=== PATIENT | female | born 1965 | race Caucasian/White ===

== ENCOUNTER 2019-10-17 14:34 | Emergency (ER) | payer BC, OTHER ==
[~2019-10-17] VITALS: Ht 165.1 cm; Wt 73.6 kg
[2019-10-17] MEDS ORDERED: LEVO100T5 PO (14:43)
[2019-10-17] MEDS ORDERED: OMEP-218 PO (14:43)
[2019-10-17] MEDS ORDERED: NS 1,000 ML IV ONE ×3 (15:00→20:00)
[2019-10-17 15:17] LABS: VENOUS BASE EXCESS -2.5 (-2.0-2.0); VENOUS HCO3 23.5 MEQ/L (23.0-27.0); VENOUS O2 SATURATION 76.7 % (60.0-80.0); VENOUS PARTIAL PRESSURE CO2 44.8 mmHg (38.0-50.0); VENOUS PARTIAL PRESSURE O2 46.2 mmHg (30.0-50.0); VENOUS PH 7.337 UNITS (7.330-7.430); VENOUS TOTAL CO2 24.8 MEQ/L (24.0-28.0)
[2019-10-17 15:24] LABS: BASO # 0.1 10^3/uL (0.0-0.2); BASO % 1.1 % (0.0-1.0); EOS % 0.3 % (0.0-3.0); HEMATOCRIT 42.2 % (36.0-47.0); HEMOGLOBIN 13.2 g/dl (12.0-15.5); LYMPH # 1.7 10^3/uL (1.5-5.0); LYMPH % 22.8 % (24.0-44.0); MEAN CORPUSCULAR HEMOGLOBIN 25.7 pg (27.0-33.0); MEAN CORPUSCULAR HGB CONC 31.3 g/dl (32.0-36.5); MEAN CORPUSCULAR VOLUME 82.3 fl (80.0-96.0); MONO # 0.4 10^3/uL (0.0-0.8); MONO % 5.5 % (0.0-5.0); NEUTROPHILS # 5.1 10^3/uL (1.5-8.5); NEUTROPHILS % 69.9 % (36.0-66.0); PLATELET COUNT, AUTOMATED 293 10^3/uL (150-450); RED BLOOD COUNT 5.13 10^6/uL (4.00-5.40); WHITE BLOOD COUNT 7.3 10^3/uL (4.0-10.0)
[2019-10-17 15:51] LABS: OSMOLALITY SERUM 337 MOSM/KG (275-295)
[2019-10-17 15:53] LABS: ACETAMINOPHEN LEVEL < 2.0 UG/ML (10.0-30.0); ALBUMIN 3.8 GM/DL (3.2-5.2); ALT/SGPT 44 U/L (12-78); BILIRUBIN,DIRECT 0.1 MG/DL (0.0-0.2); BILIRUBIN,TOTAL 0.4 MG/DL (0.2-1.0); BLOOD UREA NITROGEN 11 MG/DL (7-18); CALCIUM LEVEL 8.8 MG/DL (8.5-10.1); CARBON DIOXIDE LEVEL 23 MEQ/L (21-32); CHLORIDE LEVEL 107 MEQ/L (98-107); CPK CREATINE PHOSPHOKINASE 80 U/L (26-192); ETHYL ALCOHOL (ETHANOL) 0.177 % (0.000-0.010); GLOMERULAR FILTRATION RATE > 60.0 (>51); GLUCOSE, FASTING 88 MG/DL (70-100); POTASSIUM SERUM 3.7 MEQ/L (3.5-5.1); SALICYLATE LEVEL < 1.7 MG/DL (5.0-30.0); SODIUM LEVEL 141 MEQ/L (136-145); TOTAL PROTEIN 7.5 GM/DL (6.4-8.2)
--- NOTE | 2019-10-17 17:02 | REP ---
CHEST, SINGLE VIEW: There is no evidence of acute infiltrate. No pleural effusion is seen. The heart is normal in size. The mediastinal silhouette is unremarkable. The visualized osseous structures are intact. IMPRESSION: No acute pulmonary disease. Electronically Signed by Catracho Paiz MD 10/18/2019 04:41 P
[2019-10-17 17:04] LABS: AMPHETAMINES LEVEL URINE NEGATIVE (NEGATIVE); BARBITURATES URINE NEGATIVE (NEGATIVE); BENZODIAZEPINES URINE NEGATIVE (NEGATIVE); CANNABINOIDS URINE NEGATIVE (NEGATIVE); COCAINE METABOLITE URINE NEGATIVE (NEGATIVE); METHADONE URINE NEGATIVE (NEGATIVE); OPIATES URINE NEGATIVE (NEGATIVE); PHENCYCLIDINE URINE NEGATIVE (NEGATIVE)
[2019-10-17 18:45] VITALS: BP 142/82
[2019-10-17 19:37] LABS: BLOOD UREA NITROGEN 10 MG/DL (7-18); CALCIUM LEVEL 8.1 MG/DL (8.5-10.1); CARBON DIOXIDE LEVEL 23 MEQ/L (21-32); CHLORIDE LEVEL 110 MEQ/L (98-107); CREATININE FOR GFR 0.67 MG/DL (0.55-1.30); GLOMERULAR FILTRATION RATE > 60.0 (>51); GLUCOSE, FASTING 142 MG/DL (70-100); POTASSIUM SERUM 3.5 MEQ/L (3.5-5.1); SODIUM LEVEL 140 MEQ/L (136-145)
--- NOTE | 2019-10-17 21:26 | HPEPDOC ---
General Date of Admission 10/17/19 Date of Service: Oct 17, 2019 Chief Complaint The patient is a 54-year-old female admitted with a reason for visit of MHE. Source: Patient Exam Limitations: No limitations Timing/Duration: Unsure, 24 hours Severity: Moderate History of Present Illness Patient is 54 years old female with past medical history of EtOH abuse, hypothyroidism presented hospital with intoxication. 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 She states that she was run out of alcohol and she decided hands slicer machine operator. She denied any suicidal ideation or suicide attempts. She stated that she have never done it before and she never will. In emergency room patient was found to have no leukocytosis, creatinine 0.67, potassium 3.5. lactic acid 3.6. Patient received IV fluid Patient denied fever, chills, nausea, vomiting, dysuria. Home Medications Scheduled Levothyroxine Sodium (Levothyroxine Sodium) 100 Mcg Tablet, 100 MCG PO DAILY, (Reported) Omeprazole (Omeprazole) 20 Mg Capsule.dr, 20 MG PO DAILY, (Reported) Allergies Coded Allergies: codeine (Verified Allergy, Unknown, 10/17/19) Past Medical History Medical History Hypothyroidism, EtOH abuse Family History Father committed suicide, mother healthy Social History * Smoker: former Smoker Alcohol: heavy Drugs: denies A-FIB/CHADSVASC A-FIB History Current/History of A-Fib/PAF?: No Current PO Anticoag Therapy: No Review of Systems Constitutional: Denies: Chills Eyes: Denies: Pain ENT: Denies: Head Aches Skin: Denies: Rash Pulmonary: Denies: Dyspnea Cardiovascular: Denies: Chest Pain Gastrointestinal: Denies: Nausea, Vomiting Genitourinary: Denies: Dysuria Hematologic: Denies: Bruising Endocrine: Denies: Polydipsia Neurological: Denies: Weakness Psych: Reports: Mood Normal, Anxiety Physical Examination General Exam: Positive: Alert, Cooperative, No Acute Distress Eye Exam: Positive: PERRLA ENT Exam: Positive: Atraumatic Neck Exam: Positive: Supple; Negative: JVD Heart Exam: Positive: Rate Normal Telemetry: Positive: No significant arrhythmia Abdomen Exam: Positive: Normal bowel sounds Extremity Exam: Negative: Clubbing, Cyanosis Skin Exam: Positive: Nl turgor and temperature Neuro Exam: Positive: Strength at 5/5 X4 ext, Cranial Nerves 3-12 NL Psych Exam: Positive: Mental status NL Vital Signs Vital Signs Date Time Temp Pulse Resp B/P (MAP) Pulse Ox O2 Delivery O2 Flow Rate FiO2 10/17/19 19:00 77 22 98 Room Air 10/17/19 18:45 142/82 (102) 10/17/19 14:50 99.5 Laboratory Data Labs 24H Laboratory Tests 2 10/17/19 14:59: Immature Granulocyte % (Auto) 0.4, Neutrophils (%) (Auto) 69.9H, Lymphocytes (%) (Auto) 22.8L, Monocytes (%) (Auto) 5.5H, Eosinophils (%) (Auto) 0.3, Basophils (%) (Auto) 1.1H, Neutrophils # (Auto) 5.1, Lymphocytes # (Auto) 1.7, Monocytes # (Auto) 0.4, Eosinophils # (Auto) 0.0, Basophils # (Auto) 0.1, Nucleated Red Blood Cells % (auto) 0.0, Blood Gas Bicarbonate Standard 22.0, Venous Blood pH 7.337, Venous Blood Partial Pressure CO2 44.8, Venous Blood Partial Pressure O2 46.2, Venous Blood Total Carbon Dioxide 24.8, Venous Blood HCO3 23.5, Venous Bl ood Oxygen Saturation 76.7, Venous Blood Base Excess -2.5L, Anion Gap 11, Glomerular Filtration Rate > 60.0, Osmolality 337H, Calcium Level 8.8, Total Bilirubin 0.4, Direct Bilirubin 0.1, Aspartate Amino Transf (AST/SGOT) 49H, Alanine Aminotransferase (ALT/SGPT) 44, Alkaline Phosphatase 82, Total Creatine Kinase 80, Total Protein 7.5, Albumin 3.8, Albumin/Globulin Ratio 1.0L, Thyroid Stimulating Hormone (TSH) 1.060, Salicylates Level < 1.7L, Acetaminophen Level < 2.0L, Ethyl Alcohol Level 0.177H 10/17/19 15:06: Lactic Acid Level 3.3*H 10/17/19 15:30: Bedside Glucose (Misc Panel) 78 10/17/19 16:29: Urine Color YELLOW, Urine Appearance HAZY, Urine pH 6.0, Urine Specific [place] 1.012, Urine Protein NEGATIVE, Urine Glucose (UA) NEGATIVE, Urine Ketones TRACEH, Urine Blood 1+H, Urine Nitrite NEGATIVE, Urine Bilirubin NEGATIVE, Urine Urobilinogen 0.2, Urine Leukocyte Esterase TRACEH, Urine WBC (Auto) 4H, Urine RBC (Auto) 2, Urine Hyaline Casts (Auto) 0, Urine Bacteria (Auto) 1+H, Urine Squamous Epithelial Cells 7, Urine Sperm (Auto) , Urine Opiates Screen NEGATIVE, Urine Methadone Screen NEGATIVE, Urine Barbiturates Screen NEGATIVE, Urine Phencyclidine Screen NEGATIVE, Urine Amphetamines Screen NEGATIVE, Urine Benzodiazepines Screen NEGATIVE, Urine Cocaine Metabolite Screen NEGATIVE, Urine Cannabinoids Screen NEGATIVE 10/17/19 19:06: Anion Gap 7L, Glomerular Filtration Rate > 60.0, Lactic Acid Level 3.6*H, Calcium Level 8.1L CBC/BMP Laboratory Tests 10/17/19 14:59 10/17/19 19:06 Microbiology Microbiology 10/17/19 Urine Culture, Received Pending Assessment/Plan Patient is 54 years old female with past medical history of EtOH abuse, hypothyroidism presented hospital with intoxication. 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 She states that she was run out of alcohol and she decided hands slicer machine operator. She denied any suicidal ideation or suicide attempts. She stated that she have never done it before and she never will. In emergency room patient was found to have no leukocytosis, creatinine 0.67, potassium 3.5. lactic acid 3.6. Patient received IV fluid Patient denied fever, chills, nausea, vomiting, dysuria. Problems (1) Lactic acidosis Status: Acute Problem Text: Secondary to isopropyl ingestion Continue IV fluid Will repeat BMP in 6 hours (2) Toxic effect of alcohol Status: Acute Problem Text: sheet metal production worker on board Poison control was contacted and recommended monitor BMP and IV infusion. Plan / VTE VTE Prophylaxis Ordered?: Yes JACOB SAMUEL DO Oct 17, 2019 21:26
[2019-10-18] MEDS ORDERED: LEVOTHYROXINE 100MCG TABLET (0.1MG) PO SCH (06:00)
[2019-10-18] MEDS ORDERED: OMEPRAZOLE 20 MG CAP PO SCH (09:00)
--- NOTE | 2019-10-18 09:39 | ECGEPIP ---
[facility] - ED Test Date: 2019-10-17 Pat Name: YURIY CASTILLO Department: Room: - Gender: Female Activities Leader: WILNER : 1965 Requested By: TRAMAINE Tom Order Number: [id number] Reading MD: Marito Bell Measurements Intervals [place] Rate: 80 P: 26 OK: 156 QRS: 40 QRSD: 86 T: 17 QT: 387 QTc: 448 Interpretive Statements SINUS RHYTHM NONSPECIFIC T-WAVE ABNORMALITY NO PRIORS FOR COMPARISON Electronically Signed on 10-18-2019 9:39:02 EDT by Marito Bell
== END 2019-10-17 21:31 | disposition left against medical advice (07) ==
LOC: M ED 14:34
DX: T51.91XA Toxic effect of unspecified alcohol, accidental (unintentional), initial encounter (principal); E87.2 Acidosis; Z53.21 Procedure and treatment not carried out due to patient leaving prior to being seen by health care provider; F41.9 Anxiety disorder, unspecified; F32.9 Major depressive disorder, single episode, unspecified; K21.9 Gastro-esophageal reflux disease without esophagitis; Z72.0 Tobacco use; F10.10 Alcohol abuse, uncomplicated; Z79.899 Other long term (current) drug therapy; Z88.5 Allergy status to narcotic agent
CPT/HCPCS: 71045; 80048; 80076; 80307; 81001; 82550; 82803; 83605; 83930; 84443; 85025; 87088; 87186; 93005; 93041; 96360; 96361; 99285; G0480

== ENCOUNTER → 2023-08-13 | Outpatient (REF) | payer OTHER ==
[~2023-08-13] MED LIST: HYDR200T46 PO; LEVO100T5 PO; LEVO88TA3 PO; NICO2GUM50 PO; OMEP-173 PO; PRED5TA PO
[2023-08-13 16:49] LABS: C REACTIVE PROTEIN QUANTITATIV < 0.40 MG/DL (<1.0)
[2023-08-13 16:51] LABS: ALKALINE PHOSPHATASE 60 U/L (46-116); ALT/SGPT 18 U/L (7.0-40); AST/SGOT 19 U/L (<34); BILIRUBIN,DIRECT 0.2 MG/DL (<0.4); BILIRUBIN,TOTAL 0.6 MG/DL (0.3-1.2); BLOOD UREA NITROGEN 8 MG/DL (9-23); CALCIUM LEVEL 9.7 MG/DL (8.5-10.1); CARBON DIOXIDE LEVEL 31 MMOL/L (20-31); CHLORIDE LEVEL 103 MMOL/L (98-107); CREATININE FOR GFR 0.68 MG/DL (0.55-1.30); GLOMERULAR FILTRATION RATE > 60.0 (>51); GLUCOSE, FASTING 84 MG/DL (60-100); POTASSIUM SERUM 4.1 MMOL/L (3.5-5.1); SODIUM LEVEL 141 MMOL/L (136-145)
[2023-08-13 17:01] LABS: BASO # 0.1 10^3/uL (0.0-0.2); BASO % 1.6 % (0.0-1.0); EOS # 0.1 10^3/uL (0.0-0.5); EOS % 1.6 % (0.0-3.0); HEMATOCRIT 41.2 % (36.0-47.0); HEMOGLOBIN 12.6 g/dl (12.0-15.5); LYMPH # 1.2 10^3/uL (1.5-5.0); LYMPH % 37.3 % (24.0-44.0); MEAN CORPUSCULAR HEMOGLOBIN 24.8 pg (27.0-33.0); MEAN CORPUSCULAR HGB CONC 30.6 g/dl (32.0-36.5); MEAN CORPUSCULAR VOLUME 81.1 fl (80.0-96.0); MONO # 0.3 10^3/uL (0.0-0.8); MONO % 9.6 % (2.0-8.0); NEUTROPHILS # 1.6 10^3/uL (1.5-8.5); NEUTROPHILS % 49.9 % (36.0-66.0); PLATELET COUNT, AUTOMATED 272 10^3/uL (150-450); RED BLOOD COUNT 5.08 10^6/uL (4.00-5.40); WHITE BLOOD COUNT 3.1 10^3/uL (4.0-10.0)
[2023-08-13 17:03] LABS: HEPATITIS B SURFACE ANTIBODY NEGATIVE (POSITIVE)
[2023-08-13 17:18] LABS: ERYTHROCYTE SEDIMENTATION RATE 14 mm/hr (0-30)
[2023-08-13 17:36] LABS: HEPATITIS C VIRUS ABY INDEX < 0.02 INDEX (<0.8)
== END ==
LOC: M SFHCRHEU 12:02
PROVIDERS: ATTEND Internal Medicine
DX: M35.9 Systemic involvement of connective tissue, unspecified (principal); Z11.59 Encounter for screening for other viral diseases